=== PATIENT | female | born 1955 | race Caucasian/White ===

== ENCOUNTER 2017-10-27 09:33 | Inpatient (IN) ==
[2017-10-27] MEDS ORDERED: *HR* Propofol 200 MG/20 ML VIAL IVP ONE (09:36)
[2017-10-27] MEDS ORDERED: *HR* FentaNYL (PF) 100 MCG/2 ML VIAL ONE (09:36)
[2017-10-27] MEDS ORDERED: *HR* Midazolam HCl 2 MG/2 ML VIAL ONE (09:36)
[2017-10-27] MEDS ORDERED: *HR* HYDROmorphone 2 MG/ML SYRINGE ONE (09:38)
[2017-10-27] MEDS ORDERED: Ondansetron 4 MG/2 ML VIAL IVP ONE (09:42)
[2017-10-27] MEDS ORDERED: *HR* HYDROmorphone (PF) 1 MG/ML SYRINGE IVP PRN (09:42)
[2017-10-27] MEDS ORDERED: Lidocaine -MPF 1% 2 ML VIAL ID ONE (09:56)
[2017-10-27] MEDS ORDERED: CeFAZolin Syr 2,000MG/20 ML 2,000 MG/20 ML SYRINGE IVPB ONE (09:56)
[2017-10-27] MEDS ORDERED: Albuterol 2.5 MG/3 ML NEBULIZER IH ONE (09:56)
[2017-10-27] MEDS: Ringers Solution, Lactated 1,000 ML IVC SCH ×2 (10:03→14:14)
--- NOTE | 2017-10-27 10:23 | Anesthesia Evaluation PreOp ---
Date of Encounter: 10/27/17 Time of Encounter: 10:21 - Past History Cardiac History: GA (no angina, no stents last approx 4 yrs ago Patient reports no heart damage), HTN, Hyperlipidemia, Other (CAD, cardiomyopathy(takasubo history)) Pulmonary History: Smoker, COPD (uses O2 at hs) SINGE WINDER History: Other (lumbar radiculopathy) Other Medical History: Diabetes Type II Anesthesia History: No Prior Anesthetic Complications, Past Anesthesia (lumbar fusion, [facility], [facility],) : No Alcohol Use: occasionally Drug use: none Medications and Allergies 3 Allergy/AdvReac Type Severity Reaction Status Date / Time No Known Allergies Allergy Verified 10/27/17 10:26 - Meds/Allergy Pre-op Review Medications Reviewed: Yes Allergies Reviewed: Yes Beta Blockers on Current Med List: No Anesthesia Results - Labs Laboratory Tests 04/29/16 10/23/17 10/23/17 14:27 13:53 13:53 Hgb 14.7 Hct 44.3 Plt Count 254 PT 11.1 APTT 31.0 Sodium Potassium BUN POC Creatinine 0.90 10/23/17 10/23/17 13:53 13:53 Hgb Hct Plt Count PT APTT Sodium 140 Potassium 4.2 BUN 13 POC Creatinine - Imaging EKG: report reviewed (SINUS RHYTHM POSSIBLE LEFT ATRIAL ENLARGEMENT BORDERLINE LEFT AXIS DEVIATION POSSIBLE LEFT VENTRICULAR HYPERTROPHY NONSPECIFIC T-WAVE ABNORMALITY POOR R WAVE PROGRESSION) Anesthesia Exam Selected Entries 10/27/17 10:15 Temperature 98.2 F Pulse Rate 74 Respiratory Rate 18 Blood Pressure 135/72 O2 Sat by Pulse Oximetry 100 Weight: 94kg NPO (# of Hours): 8 - HEENT Pupil (Motor): EOMI Mallampati: II Teeth: Normal Oral Opening: Greater than 3 - SINGE WINDER LOC: Oriented SINGE WINDER Motor: Normal RUE, Normal LUE, Normal RLE, Normal LLE, Normal Face SINGE WINDER Sensory: Normal: RUE, LUE, RLE, LLE, Face - Cardiac Rhythm: Regular Murmur: None - Pulmonary Breath Sounds: bilateral Clear Respiratory Effort: Symmetrical Anesthesia Assess/Plan ASA Score: 3 Modified Rama Scale for Level of Consciousness: Cooperative, oriented, and tranquil Anesthetic Plan: General Monitoring Plan: Standard Monitors Recovery Plan: PACU (discussed GA and prone position, agrees to proceed)
--- NOTE | 2017-10-27 10:27 | History & Physical Report ---
Date of Encounter: 10/27/17 Time of Encounter: 10:27 24 Hour HP Update - Instructions Instructions: If the History and Physical is less than 30 days old and was completed prior to A.M. admission and or procedure and has NOT been updated on calendar day of procedure please complete this update prior to performing procedure. - Update Patient reports changes in Medical Condition: No Changes in examination, assessment, or condition: No Changes in Medication: No Preop tests/diagnostics Reviewed: Yes Pre-Op MRSA Screen: Negative Surgery Remains Indicated: Yes Consent for Planned Operative Procedure(s) Verified: Yes - Pre-Operative Checklist Preoperative Checklist Indicated: No Prophylactic Antibiotic Ordered: Yes Home Medications Include Beta Neel: No Beta Neel Taken Today (Day of Surgery): No Beta Neel Taken Yesterday (Day Prior to Surgery): No Is VTE Prophylaxis Indicated?: Yes
[2017-10-27] MEDS ORDERED: EPHEDrine 50 MG/ML VIAL ONE (11:16)
[2017-10-27] MEDS ORDERED: *HR* Phenylephrine 10 MG/ML VIAL ONE (11:40)
--- NOTE | 2017-10-27 13:56 | Orthopedic Operative Note ---
Date of procedure: 10/27/17 Pre-op diagnosis: Lumbar stenosis, lumbar radiculopathy, history of lumbar fusion Post-op diagnosis: same Operation/Findings: Exploration of fusion, removal of hardware, posterior lumbar interbody fusion L3 -L4: The patient successfully underwent general endotracheal anesthesia. The patient was given antibiotics prior to the start of the procedure. Compression boots and stockings were used for deep vein thrombosis prophylaxis. A Luu catheter was placed. Leads for neuro monitoring were placed on the upper and lower extremities. This included the cranium. The neuro monitoring personnel confirmed there were satisfactory readings prior to the start of the procedure. The patient was turned prone on the Raúl table. The back was prepped and draped in the usual sterile fashion. An incision was was marked and centered over the involved levels in the mid line. The incision was deepened through the lumbar fascia. Bovie cautery and Goldsmith elevators were used to reflect the paraspinal musculature at the lateral extent of the transverse processes of the involved levels. Bharti clamps were placed over the spinous processes. An intraoperative lateral fluoroscopy graft was obtained. A conversation was held between the surgeon and radiologist and both confirmed we had the correct operative levels. We then placed pedicle screws in standard fashion with the aid of fluoroscopy and anatomic landmarks. Briefly a starter awl was used. A gearshift was subsequently used to enter the pilot plant research technician hole via a transpedicular route into the vertebral body. The pilot plant research technician hole was tapped with an undersized instrument, and subsequently 6.5 x 40 mm pedicle screws were placed bilaterally at the indicated levels. The screws were tested with the aid of the neurologic monitoring staff via pedicle screw stimulation. All reading suggested there was no significant cortical wall breech. The screws were also evaluated fluoro- graphically and appeared to be in satisfactory position. We then turned our attention to the decompression portion of the procedure. We removed the supraspinous and interspinous ligaments and subsequently the insertion of the ligamentum flavum on the undersurface of the proximal lamina was dislodged with a curette. We then removed the ligamentum flavum as well as undercut the facets at this level to decompress the lateral recesses. We also performed a laminectomy. After the decompression which was over and above that which was required to place the interbody graft, the foramen and traversing roots at this level were found to be free and patent. We also took part of the medial facet in order to aid in the decompression. We then protected the neural elements including the thecal sac and traversing nerve root on the right with a dural retractor. We made an annulotomy into the disc space and then removed disc material using lPituitary instruments. We trialed various size grafts after the endplates were prepared for graft insertion. A 10 x 26 enter body graft fit well within the disc space. We obtained some bone from the posterior superior iliac spine through us a separate incision and combined with this with the bone which we had saved from the laminectomy portion of the procedure. This autograft bone was first placed in the anterior portion of the disc space and additional bone was placed within the interbody graft spacer. We then placed the interbody graft spacer obliquely across the disc space towards the midline while protecting the neural elements with a root retractor. When the graft was found to be in satisfactory position the grain processor was removed. We then copiously irrigated the wound. We then decorticated the transverse processes as well as the facet joints of the involved levels to aid in the posterolateral fusion. We placed autograft bone in the lateral gutters over these regions. We then placed rods within the screw heads of the involved levels and first locked the distal screws and then subsequently locked the proximal screws so as to improve and reduce the spondylolisthesis previously seen. We then closed the wound in layers with 1 Vicryl for the fascia, 2-0 Vicryl. Subcutaneous tissue, and Dermabond was used for skin closure. Sterile dressings were placed over the wound. The patient was turned supine on a hospital bed and extubated. All sponge instruments and needle counts were correct at the end of the procedure. The patient tolerated the procedure well without complications. Anesthesia: GETA Surgeon: Lorenzo Obrien Jr Estimated blood loss (cc): 150 Condition: stable Disposition: PACU
--- NOTE | 2017-10-27 14:29 | Anesthesia Evaluation Post Op ---
Date of Encounter: 10/27/17 Time of Encounter: 14:27 - Vital Signs Vital Signs: Vital Signs/O2 Sat, Most Current Temp Pulse Resp BP Pulse Ox 98.6 F 86 13 105/52 93 10/27/17 13:57 10/27/17 14:17 10/27/17 14:17 10/27/17 14:17 10/27/17 14:17 - Lungs Lungs: Clear Ascult./Percussion - Airway Airway: Non-obstructed - Cardiovascular Regular Rate - Mental Status Mental Status: Alert & Oriented, Answers Appropriately - Pain Pain Scale: 5 Pain Scale used: Numeric (1 - 10) - Nausea Vomiting Nausea Vomiting: Not Present - Hydration Hydration: Ice chips, Luu catheter Notes: 10/27/17 14:28 patient resting comfortably without complaints - Discharge PostOp Status: Transfer Patient to floor
[2017-10-27] MEDS ORDERED: Ringers Solution, Lactated 1,000 ML IVC SCH (14:58)
[2017-10-27] MEDS ORDERED: Acetaminophen 325 MG TABLET PO PRN (14:58)
[2017-10-27] MEDS ORDERED: Ipratropium/Albuterol Neb 3 ML IH PRN (14:58)
[2017-10-27] MEDS ORDERED: Naloxone 0.4 MG/ML INJ IVP PRN (14:58)
[2017-10-27] MEDS ORDERED: *HR* OxyCODONE Immed Rel 5 MG TABLET PO SCH (16:00)
[2017-10-27] MEDS: CeFAZolin Premix DUPLEX 2,000 MG/50 ML BAG IVPB SCH (16:52)
[2017-10-27] MEDS ORDERED: *HR* OxyCODONE Immed Rel 5 MG TABLET PO PRN (18:32)
[2017-10-27] MEDS: *HR* Morphine 2 MG/ML SYRINGE IVP PRN (21:54)
[2017-10-27] MEDS: Lisinopril 20 MG TABLET PO SCH (21:56)
[2017-10-27] MEDS: *HR* Metformin 500 MG TABLET PO SCH (21:57)
[2017-10-28] MEDS: CeFAZolin Premix DUPLEX 2,000 MG/50 ML BAG IVPB SCH (00:33)
[2017-10-28] MEDS: *HR* OxyCODONE Immed Rel 5 MG TABLET PO PRN ×5 (00:33→20:52)
[2017-10-28] MEDS: *HR* Morphine 2 MG/ML SYRINGE IVP PRN (04:40)
[2017-10-28] MEDS: Ondansetron 4 MG/2 ML VIAL IVP PRN ×2 (04:40→11:37)
[2017-10-28] MEDS: Lisinopril 20 MG TABLET PO SCH ×2 (07:36→20:36)
[2017-10-28] MEDS: Tiotropium 18 MCG inhalation IH SCH (09:37)
[2017-10-28] MEDS: Famotidine 20 MG/2 ML VIAL IVP SCH ×2 (15:58→16:05)
[2017-10-28] MEDS ORDERED: Scopolamine Patch 1.5 MG PATCH.TD72 TD ONE (16:36)
[2017-10-28] MEDS ORDERED: Nitroglycerin 0.4 MG TAB.SUBL SL PRN (17:21)
[2017-10-28] MEDS ORDERED: Nitroglycerin 0.4 MG TAB.SUBL SL ONE (17:21)
[2017-10-28 17:46] LABS: Basophils % 0.1 %; Eosinophils # 0.1 K/mcL (0.0-0.6); Eosinophils % 0.4 %; Immature Granulocytes % 0.8 % (0-4); Lymphocytes # 3.3 K/mcL (0.6-4.6); Lymphocytes % 23.9 %; Mean Corpuscular HGB Conc 32.3 g/dL (31.6-35.5); Mean Corpuscular Hemoglobin 30.8 pg (28.0-33.3); Mean Corpuscular Volume 95.4 fL (83.0-100.0); Mean Platelet Volume 10.6 fL (9.4-12.4); Monocytes # 1.2 K/mcL (0.0-1.3); Monocytes % 8.7 %; Neutrophils # 9.1 K/mcL (1.6-8.9); Platelet Count 231 K/mcL (140-400); Red Blood Count 4.09 M/mcL (3.82-4.97); Red Cell Distribution Width 12.4 % (11.5-14.5); Segmented Neutrophils % 66.1 %
[2017-10-28 17:47] LABS: Hemoglobin 12.6 g/dL (11.5-15.4)
[2017-10-28 17:56] LABS: BUN/Creatinine Ratio 16 (6-26); Blood Urea Nitrogen 13 mg/dL (7-20); Calcium 9.1 mg/dL (8.6-10.8); Carbon Dioxide 31 mEq/L (19-29); Chloride 102 mEq/L (98-109); Glucose 102 mg/dL (70-99); Osmolality,Calculated 288 (280-300); Potassium 4.3 mEq/L (3.5-4.5); Sodium 139 mEq/L (136-145); eGFR For African Americans > 60 (> 60); eGFR For Non-African Americans > 60 (> 60)
[2017-10-28] MEDS ORDERED: MOM Conc 10 ML UD.LIQ PO PRN (18:56)
[2017-10-28] MEDS ORDERED: Temazepam 15 MG CAPSULE PO PRN (18:58)
[2017-10-28] MEDS: *HR* Metformin 500 MG TABLET PO SCH (20:36)
[2017-10-29] MEDS: *HR* OxyCODONE Immed Rel 5 MG TABLET PO PRN ×4 (01:48→20:59)
[2017-10-29] MEDS: Famotidine 20 MG/2 ML VIAL IVP SCH ×2 (06:39→17:04)
[2017-10-29] MEDS: Tiotropium 18 MCG inhalation IH SCH (08:25)
[2017-10-29] MEDS: Lisinopril 20 MG TABLET PO SCH ×2 (08:56→20:57)
--- NOTE | 2017-10-29 13:29 | Spine Progress Note ---
Date of Encounter: 10/28/17 Time of Encounter: 13:20 Subjective Principal diagnosis: s/p lumbar fusion Interval history: The patient is without complaints. Some heartburn. Afebrile vital signs are stable. Incision is clean dry and intact. Neurovascularly intact with regard to bilateral lower extremities. Fires all upper and lower extremity motor groups. Assessment :stable. Plan mobilize ,continue analgesics, discharge planning. Objective Vital signs: Vital Signs Temp Pulse Resp BP Pulse Ox 10/29/17 11:50 98.8 F 71 16 122/68 92 10/29/17 08:27 16 99 10/29/17 07:01 98.5 F 66 16 95/59 99 10/29/17 03:41 99.2 F 75 18 126/56 96 10/29/17 00:19 98.8 F 71 16 127/71 98 10/28/17 19:13 98.6 F 76 16 117/73 100 10/28/17 17:48 99.1 F 71 16 111/69 97 10/28/17 17:34 150/98 10/28/17 16:02 98.4 F 82 16 140/74 94 Intake and Output 10/28/17 10/29/17 10/29/17 23:59 07:59 15:59 Intake Total 300 / 300 Output Total 1250 / 1250 Balance -950 / -950 Intake: Oral 300 / 300 Output: Urine 1250 / 1250 Other: # Voids 1 1 Weight 94.06 kg Blood Glucose* 102 109 Patient Weight 10/29/17 23:59 Weight 94.06 kg - Labs CBC & BMP: 10/28/17 17:36 10/28/17 17:36 Labs: Abnormal lab results WBC 13.7 K/mcL (4.3-11.1) H 10/28/17 17:36 Neutrophils # 9.1 K/mcL (1.6-8.9) H 10/28/17 17:36 Carbon Dioxide 31 mEq/L (19-29) H 10/28/17 17:36 Glucose 102 mg/dL (70-99) H 10/28/17 17:36 POC Glucose 102 (58-89) H 10/28/17 20:40 Consult Discharge Plan - Plan Referrals: Marilee Blanchard MD [Primary Care Provider] -
--- NOTE | 2017-10-29 13:30 | Spine Progress Note ---
Date of Encounter: 10/29/17 Time of Encounter: 13:29 Subjective Principal diagnosis: s/p lumbar fusion Interval history: The patient is without complaints. Some heartburn. Had a cardic work up for chest pain which wsa negative. Afebrile vital signs are stable. Incision is clean dry and intact. Neurovascularly intact with regard to bilateral lower extremities. Fires all upper and lower extremity motor groups. Assessment : stable. Plan mobilize ,continue analgesics, discharge planning. Objective Vital signs: Vital Signs Temp Pulse Resp BP Pulse Ox 10/29/17 11:50 98.8 F 71 16 122/68 92 10/29/17 08:27 16 99 10/29/17 07:01 98.5 F 66 16 95/59 99 10/29/17 03:41 99.2 F 75 18 126/56 96 10/29/17 00:19 98.8 F 71 16 127/71 98 10/28/17 19:13 98.6 F 76 16 117/73 100 10/28/17 17:48 99.1 F 71 16 111/69 97 10/28/17 17:34 150/98 10/28/17 16:02 98.4 F 82 16 140/74 94 Intake and Output 10/28/17 10/29/17 10/29/17 23:59 07:59 15:59 Intake Total 300 / 300 Output Total 1250 / 1250 Balance -950 / -950 Intake: Oral 300 / 300 Output: Urine 1250 / 1250 Other: # Voids 1 1 Weight 94.06 kg Blood Glucose* 102 109 Patient Weight 10/29/17 23:59 Weight 94.06 kg - Labs CBC & BMP: 10/28/17 17:36 10/28/17 17:36 Labs: Abnormal lab results WBC 13.7 K/mcL (4.3-11.1) H 10/28/17 17:36 Neutrophils # 9.1 K/mcL (1.6-8.9) H 10/28/17 17:36 Carbon Dioxide 31 mEq/L (19-29) H 10/28/17 17:36 Glucose 102 mg/dL (70-99) H 10/28/17 17:36 POC Glucose 102 (58-89) H 10/28/17 20:40 Consult Discharge Plan - Plan Referrals: Marilee Blanchard MD [Primary Care Provider] -
--- NOTE | 2017-10-29 16:04 | Electrocardiograph Report ---
[place] [id number] Test Date: 2017-10-28 Pat Name: Dalia Reynoso Department: 114 Room: [facility] Gender: F Block Setter [place]: CHERELLE : 1955 Requested By: Lorenzo Obrien Order Number: [id number] Reading MD: Julisa Tian Measurements Intervals [place] Rate: 76 P: 63 MO: 138 QRS: -14 QRSD: 98 T: 60 QT: 404 QTc: 434 Interpretive Statements SINUS RHYTHM WITH SINUS ARRHYTHMIA NONSPECIFIC T-WAVE ABNORMALITY Electronically Signed On 10-29-2017 16:02:54 EST by Julisa Tian
[2017-10-29] MEDS: *HR* Metformin 500 MG TABLET PO SCH (20:57)
[2017-10-30] MEDS: Famotidine 20 MG/2 ML VIAL IVP SCH (05:47)
[2017-10-30] MEDS: *HR* OxyCODONE Immed Rel 5 MG TABLET PO PRN ×3 (06:14→18:26)
[2017-10-30] MEDS: Tiotropium 18 MCG inhalation IH SCH ×2 (08:24→15:11)
[2017-10-30] MEDS: Lisinopril 20 MG TABLET PO SCH (08:38)
[2017-10-30] MEDS ORDERED: Albuterol 2.5 MG/3 ML NEBULIZER IH PRN (15:32)
[2017-10-30 16:02] VITALS: BP 133/76
--- NOTE | 2017-10-30 17:00 | Discharge Summary ---
Date of Encounter: 10/30/17 Time of Encounter: 16:57 - Discharge Diagnosis (1) Lumbar stenosis Priority: Primary Status: Chronic Qualifiers: Neurogenic claudication status: with neurogenic claudication Qualified Code (s): M48.062 - Spinal stenosis, lumbar region with neurogenic claudication (2) Adjacent segment disease with spinal stenosis Priority: Secondary Status: Chronic (3) History of lumbar fusion Priority: Secondary Status: Chronic - Discharge Medications Prescriptions: OxyCODONE Immed Rel [Roxicodone 5 MG] 5 mg PO Q4HR PRN #30 tablet PRN Reason: Moderate Pain Home Medications: Cyclobenzaprine HCl 5 - 10 mg PO HS PRN 10/27/17 [History] Ipratropium/Albuterol Sulfate [Combivent Respimat Inhal Mayer] 2 puff IH Q4H PRN 10/27/17 [History] Lisinopril [Zestril] 20 mg PO BID 10/27/17 [History] Pravastatin Sodium [Pravachol] 20 mg PO HS 10/27/17 [History] Tiotropium [Spiriva] 18 mcg IH 0700 10/27/17 [History] metFORMIN [Glucophage] 500 mg PO HS 10/27/17 [History] OxyCODONE Immed Rel [Roxicodone 5 MG] 5 mg PO Q4HR PRN #30 tablet 10/30/17 [Rx] Allergies/Adverse Reactions: 3 Allergy/AdvReac Type Severity Reaction Status Date / Time No Known Allergies Allergy Verified 10/27/17 10:26 Labs on day of discharge: Labs from last 24 hours 10/30/17 10/30/17 10/30/17 16:43 12:09 07:45 POC Glucose 124 H 114 H 125 H 10/29/17 10/29/17 10/29/17 15:26 12:01 08:13 POC Glucose 93 H 109 H 104 H - Impressions ITS Impressions Lumbar Spine X-Ray 10/27/17 00:00 IMPRESSION: No immediate complications status post lower lumbar instrumented fusion revision. D/ / Bernard Jeffers MD / Bernard Jeffers MD Interpreting Provider: Bernard Jeffers MD Date of admission: 10/27/17 10:27 Primary care physician: Marilee Rivas Consults: 10/27/17 14:58 Consult to Occupational Therapy [CONS] Routine Comment: Evaluate, develop and implement POC Reason for Consult: Postoperative rehabilitation Consult to Physical Therapy [CONS] Routine Comment: Evaluate, develop and implement POC Reason for Consult: Postoperative rehabilitation Consult to Spine Navigator [CONS] [CONS] Routine - Patient Status Disposition: Home, Self-Care Condition: Good Functional capacity at discharge: independent ambulation Overall status at discharge: patient is progressing back to baseline - Discharge Instructions Follow Up With: Akilah Yepez PAC [Physician Building Repair Maintenance Supervisor] - Lorenzo Obrien Jr, MD [Partnered Physician] - 11/13/17 3:45 pm (& also, , January 29, 2018 at 11:15 AM) Marilee Blanchard MD [Primary Care Provider] - Additional Instructions: Discharge Instructions: Lumbar Please call [facility] ([phone]), your Primary Care Physician, or report to the ER if you have any of the following symptoms: Fever greater that 101.5, increased pain/redness/drainage/odor for your incision site or any other concerning symptoms. ACTIVITY * May Shower * No Tub Baths * No lifting greater than 10 pounds * No Smoking * No Swimming * No off Ground Activities (Running, Climbing, Ladders, Horseback Riding) * No Driving * Wear Back Brace when up walking if lumbar fusion done MEDICATIONS: Upon discharge resume your home medications. Take all the medications as prescribed. Take a stool softener if taking narcotic pain medications. Stool softeners are only effective if you drink enough fluids. Drink 6-8 glass of water or fluids a day, unless this is not allowed for another health problem. Despite using stool softeners, if you haven't had a bowel movement in 3 days, please switch to a gentle laxative. Gentle laxatives are sold over the counter. You should have a bowel movement within 24 hours, if not call the office. You will be discharged from the hospital with a prescription for pain medication. You are encouraged to decrease the use of narcotic pain medication as tolerated. Should you require a refill, please call the office. It is best to call 48-72 hours in advance of needing a prescription refill so you don't run out of medication. WOUND CARE: Remove Dressing Tomorrow. Leave incision open to air. Pat dry when you get out of the shower. FOLLOW-UP: Please follow up with your surgeon in the orthopedic clinic in 2 weeks from the day of surgery. References: [employer] (www.apta.org) - Hospital Course Hospital course: Ms. Reynoso is a 62 year old female The patient had an uneventful postoperative course. Progressed from intravenous analgesic needs to oral analgesic needs only. Remained neurovascularly intact and mobilized satisfactorily. All intraoperative and/or postoperative radiographic studies were satisfactory. Patient is discharged with plan for rehabilitation and follow-up in 2 weeks post discharge on analgesic medication and patient's home medications. - Time Spent with Patient Total time spent providing and/or coordinating discharge services: - VTE Documentation of Mechanical Device: Intermittent pneumatic compression device
== END 2017-10-30 18:50 | disposition home or self-care (01) | DRG 460 ==
LOC: SAMDAY 09:33 → 3NENU 10:27
PROVIDERS: ADMIT Orthopaedic Surgery Orthopaedic Surgery of the Spine; ATTEND Orthopaedic Surgery Orthopaedic Surgery of the Spine